=== PATIENT | female | born 1950 | race Caucasian/White ===

== ENCOUNTER 2021-06-15 17:03 | Day surgery (SDCO) | payer MEDICARE ==
[~2021-06-15] VITALS: Ht 154.9 cm; Wt 66.8 kg
[2021-06-15 20:38] LABS: BASOPHIL 0.1 % (0-2); EOSINOPHIL 0.4 % (0-7); HCT 42.5 % (37.0-47.0); HGB 14.2 g/dl (12.5-16.0); LYMPHOCYTE 17.9 % (15-48); MCH 29.6 pg (25.0-31.0); MCHC 33.4 g/dL (32.0-36.0); MCV 88.5 fL (78.0-100.0); MPV 9.8 fL (6.0-9.5); NEUTROPHIL 75.3 % (41-80); NRBC 0; PLT 294 K/uL (150-400); WBC 7.8 K/uL (4.0-10.5)
[2021-06-15 20:42] LABS: BILIRUBIN 1+ mg/dL (NEGATIVE); BLOOD NEGATIVE Ery/uL (NEGATIVE); CLARITY CLEAR (CLEAR); COLOR YELLOW (YELLOW); GLUCOSE (U) NORMAL (NORMAL); LEUKOCYTES TRACE Leu/uL (NEGATIVE); NITRITE NEGATIVE (NEGATIVE); PROTEIN NEGATIVE (NEGATIVE); SPECIFIC GRAVITY 1.025 (1.001-1.030); UROBILINOGEN 0.2 mg/dL (0.2-1.0); pH 5.5 (5.0-9.0)
[2021-06-15 20:50] LABS: BACTERIA 1+
[2021-06-15 20:56] LABS: LACTIC ACID 1.4 mmol/L (0.4-1.9)
[2021-06-15 21:02] LABS: ALBUMIN 4.3 g/dL (3.4-5.0); BILIRUBIN - TOTAL 0.5 mg/dL (0.2-1.0); BUN/CREAT RATIO (CALC) 15.6 RATIO; CREATININE 0.9 mg/dL (0.51-0.95); GLOBULIN (CALCULATION) 3.6 g/dL; TOTAL PROTEIN 7.9 g/dL (6.4-8.2)
[2021-06-16] MEDS ORDERED: SPIRONOLACTONE25 M1 PO (00:37)
[2021-06-16] MEDS ORDERED: CLOPIDOGREL75 MG PO (00:39)
[2021-06-16] MEDS ORDERED: GABAPENTIN600 MG PO (00:39)
[2021-06-16] MEDS ORDERED: FERROUS SULFAT324 MG PO (00:40)
[2021-06-16] MEDS ORDERED: LISINOPRIL30 MG PO (00:40)
[2021-06-16] MEDS ORDERED: METOPROLOL SUC100 MG PO (00:41)
[2021-06-16] MEDS ORDERED: PANTOPRAZOLE SO40 MG PO (00:42)
[2021-06-16] MEDS ORDERED: SERTRALINE HCL50 MG PO (00:42)
[2021-06-16] MEDS ORDERED: SIMVASTATIN20 MG PO (00:42)
[2021-06-16] MEDS ORDERED: LISINOPRIL20 MG PO (00:43)
[2021-06-16] MEDS ORDERED: BACLOFEN10 MG PO (00:43)
[2021-06-16] MEDS ORDERED: HYDROCODON-ACE1 EAC6 PO (01:37)
[2021-06-16] MEDS ORDERED: DUONEB 2.5-0.5M1 AMP INH (01:40)
[2021-06-16 06:05] LABS: BASOPHIL 0.1 % (0-2); EOSINOPHIL 1.5 % (0-7); HCT 37.3 % (37.0-47.0); HGB 12.6 g/dl (12.5-16.0); LYMPHOCYTE 21.2 % (15-48); MCH 30.1 pg (25.0-31.0); MCHC 33.8 g/dL (32.0-36.0); MCV 89.2 fL (78.0-100.0); MPV 9.5 fL (6.0-9.5); NEUTROPHIL 64.8 % (41-80); NRBC 0; PLT 246 K/uL (150-400); RBC 4.18 M/uL (4.20-5.40); RDW 12.3 % (11.5-14.0); WBC 8.2 K/uL (4.0-10.5)
[2021-06-16 06:23] LABS: ALBUMIN 3.5 g/dL (3.4-5.0); BILIRUBIN - TOTAL 0.5 mg/dL (0.2-1.0); BUN/CREAT RATIO (CALC) 13.9 RATIO; CREATININE 0.79 mg/dL (0.51-0.95); GLOBULIN (CALCULATION) 3.3 g/dL; TOTAL PROTEIN 6.8 g/dL (6.4-8.2)
[2021-06-17] MEDS ORDERED: ONDANSETRON ODT4 MG PO (08:19)
[2021-06-17] MEDS ORDERED: NORCO 5-325 TA1 EACH PO ×2 (08:19→13:06)
[2021-06-17] MEDS ORDERED: LEVAQUIN750 MG PO (08:19)
[2021-06-17] MEDS ORDERED: METRONIDAZOLE500 MG PO (08:19)
--- NOTE | 2021-06-17 10:27 | NUR ---
PATIENT AMBULATED IN HALLWAY WITH MINIMAL ASSIST
--- NOTE | 2021-06-17 11:30 | NUR ---
PER NURSESHASTA, PT DOES NOT HAVE ANY D/C NEEDS.
[2021-06-18] MEDS ORDERED: MACROBID100 MG PO (13:00)
== END 2021-06-17 13:12 | disposition home or self-care (01) ==
LOC: FER 17:03 → FMS 23:46
PROVIDERS: Emergency Medicine Emergency Medical Services; Nurse Practitioner; ADMIT Allergy & Immunology Allergy
DX: K57.32 Diverticulitis of large intestine without perforation or abscess without bleeding (principal); E11.9 Type 2 diabetes mellitus without complications; I10 Essential (primary) hypertension; G89.29 Other chronic pain; M54.9 Dorsalgia, unspecified; G25.81 Restless legs syndrome; J44.9 Chronic obstructive pulmonary disease, unspecified; I44.0 Atrioventricular block, first degree; I25.10 Atherosclerotic heart disease of native coronary artery without angina pectoris; R32 Unspecified urinary incontinence; Z85.3 Personal history of malignant neoplasm of breast; Z79.02 Long term (current) use of antithrombotics/antiplatelets; Z79.899 Other long term (current) drug therapy; Z88.2 Allergy status to sulfonamides; Z20.822 Contact with and (suspected) exposure to COVID-19
CPT/HCPCS: 36415; 80053; 81001; 83605; 83690; 84145; 84484; 85025; 87076; 87088; 87186; 93005; G0378; J0696; J1170; J1956; J2405; J2550; J7030; J7120; Q9967; U0002

== ENCOUNTER 2022-02-19 17:52 | Emergency (ER) | payer MEDICARE ==
[~2022-02-19 17:52] MED LIST: BACLOFEN10 MG PO; CLOPIDOGREL75 MG PO; DUONEB 2.5-0.5M1 AMP INH; FERROUS SULFAT324 MG PO; GABAPENTIN600 MG PO; HYDROCODON-ACE1 EAC6 PO; LEVAQUIN750 MG PO; LISINOPRIL20 MG PO; LISINOPRIL30 MG PO; MACROBID100 MG PO; METOPROLOL SUC100 MG PO; METRONIDAZOLE500 MG PO; NORCO 5-325 TA1 EACH PO; ONDANSETRON ODT4 MG PO; PANTOPRAZOLE SO40 MG PO; SERTRALINE HCL50 MG PO; SIMVASTATIN20 MG PO; SPIRONOLACTONE25 M1 PO
[2022-02-19 18:53] LABS: BASOPHIL 0.2 % (0-2); HCT 45.4 % (37.0-47.0); LYMPHOCYTE 23.2 % (15-48); MCV 90.8 fL (78.0-100.0); MONOCYTE 8.8 % (0-12); MPV 9.7 fL (6.0-9.5); NEUTROPHIL 66.6 % (41-80); NRBC 0; PLT 440 K/uL (150-400); RDW 13.1 % (11.5-14.0); WBC 9.2 K/uL (4.0-10.5)
[2022-02-19 19:16] LABS: BILIRUBIN - TOTAL 0.5 mg/dL (0.2-1.0); BUN/CREAT RATIO (CALC) 8.3 RATIO; CREATININE 0.84 mg/dL (0.51-0.95); GLOBULIN (CALCULATION) 4.2 g/dL; POTASSIUM 3.8 mmol/L (3.5-5.1); TOTAL PROTEIN 8.2 g/dL (6.4-8.2)
[2022-02-19 19:30] LABS: CORONAVIRUS 2019 SARS-COV-2 NEGATIVE (NEGATIVE); INFLUENZA A NAA NEGATIVE (NEGATIVE)
[2022-02-19 20:45] LABS: BILIRUBIN NEGATIVE (NEGATIVE); BLOOD TRACE-INTACT Ery/uL (NEGATIVE); CLARITY CLEAR (CLEAR); COLOR YELLOW (YELLOW); GLUCOSE (U) NORMAL (NORMAL); LEUKOCYTES NEGATIVE Leu/uL (NEGATIVE); NITRITE NEGATIVE (NEGATIVE); PROTEIN NEGATIVE (NEGATIVE); UROBILINOGEN 0.2 mg/dL (0.2-1.0); pH 5.5 (5.0-9.0)
[2022-02-19 20:52] LABS: BACTERIA TRACE; MUCOUS TRACE
[2022-02-19] MEDS ORDERED: ONDANSETRON ODT4 MG PO ×2 (21:12→21:57)
== END 2022-02-19 22:03 | disposition home or self-care (01) ==
LOC: FER 17:52
PROVIDERS: Physician Assistant
DX: R11.2 Nausea with vomiting, unspecified (principal); R19.7 Diarrhea, unspecified; E11.9 Type 2 diabetes mellitus without complications; I10 Essential (primary) hypertension; J44.9 Chronic obstructive pulmonary disease, unspecified; Z88.0 Allergy status to penicillin; Z88.2 Allergy status to sulfonamides; Z20.822 Contact with and (suspected) exposure to COVID-19
CPT/HCPCS: 36415; 71045; 80053; 81001; 83690; 85025; J2270; J2405; J7030; U0002